=== PATIENT | female | born 1955 | race Caucasian/White ===

== ENCOUNTER → 2023-05-22 15:58 | Outpatient (REF) | payer OTHER, SELFPAY | LOC: HWRAD 15:58 | PROVIDERS: ATTENDING PHYSICIAN Internal Medicine Critical Care Medicine; FAMILY PHYSICIAN Family Medicine | DX: R06.02 Shortness of breath (principal); R09.89 Other specified symptoms and signs involving the circulatory and respiratory systems | CPT/HCPCS: 71250 ==

== ENCOUNTER → 2023-06-30 08:57 | Outpatient (REF) | payer OTHER, SELFPAY | LOC: RCS 08:57 | PROVIDERS: ATTENDING PHYSICIAN Internal Medicine Cardiovascular Disease; FAMILY PHYSICIAN Family Medicine | DX: I25.10 Atherosclerotic heart disease of native coronary artery without angina pectoris (principal); I45.10 Unspecified right bundle-branch block; R07.89 Other chest pain; I47.19 Other supraventricular tachycardia | CPT/HCPCS: 93017; 93350 ==

== ENCOUNTER → 2023-12-10 20:04 | Outpatient (REF) | payer OTHER, SELFPAY | LOC: MRI 20:04 | PROVIDERS: ATTENDING PHYSICIAN Family Medicine | DX: H81.4 Vertigo of central origin (principal); H90.2 Conductive hearing loss, unspecified | CPT/HCPCS: 70553; A9575 ==

== ENCOUNTER → 2024-01-08 15:05 | Outpatient (REF) | payer OTHER, SELFPAY | LOC: HWRAD 15:05 | PROVIDERS: ATTENDING PHYSICIAN Family Medicine | DX: C07 Malignant neoplasm of parotid gland (principal) | CPT/HCPCS: 76536 ==

== ENCOUNTER → 2024-02-11 09:24 | Outpatient (REF) | payer OTHER, SELFPAY ==
[2024-02-11 09:35] VITALS: BP 143/84; BP_SYST 86
[2024-02-11 10:30] VITALS: BP 143/84
== END ==
LOC: RADI 09:24
PROVIDERS: ATTENDING PHYSICIAN Otolaryngology; FAMILY PHYSICIAN Family Medicine
DX: D11.0 Benign neoplasm of parotid gland (principal)
CPT/HCPCS: 88173; 42400; 76942

== ENCOUNTER → 2024-03-22 14:42 | Outpatient (REF) | payer OTHER, SELFPAY | LOC: HWWDC 14:42 | PROVIDERS: ATTENDING PHYSICIAN Family Medicine | DX: Z12.31 Encounter for screening mammogram for malignant neoplasm of breast (principal) | CPT/HCPCS: 77063; 77067 ==

== ENCOUNTER 2024-10-12 19:38 | Emergency (ER) | payer OTHER, SELFPAY ==
[2024-10-12 19:42] VITALS: BP 173/105
[2024-10-12 21:00] VITALS: BP 153/83
--- NOTE | 2024-10-12 22:01 | ED.GENMED ---
History of Present Illness
General
Chief Complaint: Nose Bleed
Source: patient
Exam Limitations: none
Time Seen by Provider: 10/12/24 20:15
Nursing documentation reviewed up to this point in time: agreed with
History of Present Illness
History of Present Illness:
Patient to ED with nose bleed. States she has had a nose bleed daily for the past days, Unable to stop bleeding today. Brought to ED by spouse for eval
Past History
Past History
ED Past Medical History: Hypercholesterolemia, Psychiatric (Anxiety Depression) and Other (Diverticulitis, IBS, Glaucoma treated and gone, C-diff, Vertigo)
ED Past Surgical History: Orthopedic (ORIF of Toe)
Social History
Tobacco: Non-smoker
Alcohol: Occasional
Drug: None
Personal:
Living: with family
Family History
Family History: CAD
Review of Systems
Review of Systems
Allergies reviewed?: Yes
All Other Systems: ROS reviewed and negative except as documented in HPI and ROS
Constitutional: Reports no symptoms
EENT: Reports other (right sided nose bleed)
Respiratory: Reports no symptoms
Cardiac: Reports no symptoms
ABD/GI: Reports no symptoms
: Reports no symptoms
Musculoskeletal: Reports no symptoms
Skin: Reports no symptoms
Neurological: Reports no symptoms
Psychiatric: Reports no symptoms
Phy Exam
General Physical Exam
General Presentation: moderate distress
General Skin: warm and dry
General Habitus: normal
General Mental: alert
ENT Exam
ENT Exam: other (heavy right nose bleed. Passing large clots. Unable to stop bleeding with direct pressure. Posterior packing applied with resolution of bleeding. SHe will follow up with ENT tomorrow)
Musculoskeletal Exam
Musculoskeletal Exam: full ROM and neuro vasc intact
Skin Exam
Skin Exam: normal color, warm/dry and no rash
Psychiatric Exam
Psychiatric Exam: normal mood/affect
Course
Orders/Labs/Results
Orders:
Orders
10/12/24 20:17
Tranexamic Acid 1,000 mg .ROUTE .STK-MED ONE
Vital Signs
Initial and Last Documented VS:
Initial Vital Signs
Temp Pulse Resp BP
98.1 F 100 18 173/105
10/12/24 19:42 10/12/24 19:42 10/12/24 19:42 10/12/24 19:42
Last Documented Vital Signs
Temp Pulse Resp BP
98.1 F 100 18 153/83
10/12/24 19:42 10/12/24 19:42 10/12/24 21:00 10/12/24 21:00
*Pulse Oximetry
Oxygen Mode of Delivery: Room air
Patient hypoxic: no
*Critical Care Note
Total Time (30-74mins, 75-104mins- exclusive of procedures): Not Applicable
Update Note
Update Note:
Patient to ED with nose bleed. Has had bleeding daily for 3 days Today unable to stop bleeding. Heavy bleeding from right nare. Unable to stop bleeding with pressure. Posterior nasal packing applied iwth resolution of bleeding Will discharge
home and she will follow up with ENT tomorrow. Given instructions on s/s to return ot ED and she is agreeable to plan.
ED Attending Note
-
Portions of this chart may have been created with voice recognition software.� Occasional wrong word or��sound alike� substitutions may have occurred due to the inherent limitations of voice recognition software.
Discharge Plan
Departure
Patient Disposition: Home (Routine Discharge)
Date of Disposition: 10/12/24
Time of Disposition: 20:51
Patient with high blood pressure during this ER visit?: No
Condition: Good
Covid-19: Not Applicable
Discharge Problem:
Nosebleed
Instructions: Nosebleeds (DC)
Prescriptions:
No Action
sertraline 50 MG tablet
50 mg PO QPM
loratadine 10 MG tablet
10 mg PO DAILYPRN PRN (Reason: allergies)
rosuvastatin 5 MG tablet
5 mg PO QPM
Lactobac 2-Bifido 1-S. therm [High Potency Probiotic] 1 CAP capsule
1 cap PO DAILY
multivitamin with folic acid [Tab-A-Licha] 1 TABLET tablet
1 tab PO DAILY
Referrals:
Bertin Batista DO [Family Provider, Family Practice]
Vamsi Vaughn MD [Active, Otology] - Call in 1-3 days for appt
Activity Restrictions/Additional Instructions:
Return to the emergency department immediately for any changes in/worsening of your symptoms,
Interventions
Interventions:
*Risk Screen - Suicide Last Done: 10/12/24 19:42
*General Assessment Last Done: 10/12/24 19:42
*Neglect/Abuse Screening Last Done: 10/12/24 19:42
*ED COVID-19 Vaccine History Last Done: 10/12/24 19:42
*Nursing Disposition Last Done: 10/12/24 21:00
ED-EENT Assessment Last Done: 10/12/24 20:00
Discharge Date and Time
Discharge Date/Time: 10/12/24 21:00
Print Language: WELSH
== END 2024-10-12 21:00 | disposition home or self-care (01) ==
LOC: EMR 19:38
PROVIDERS: EMERGENCY PHYSICIAN Emergency Medicine; FAMILY PHYSICIAN Family Medicine
DX: R04.0 Epistaxis (principal); E78.00 Pure hypercholesterolemia, unspecified; F41.9 Anxiety disorder, unspecified; F32.A Depression, unspecified; K57.92 Diverticulitis of intestine, part unspecified, without perforation or abscess without bleeding; K58.9 Irritable bowel syndrome, unspecified; Z88.1 Allergy status to other antibiotic agents
CPT/HCPCS: 99283; 30901

== ENCOUNTER → 2024-12-06 07:58 | Outpatient (REF) | payer OTHER, SELFPAY | LOC: RAD 07:58 | PROVIDERS: ATTENDING PHYSICIAN Otolaryngology Facial Plastic Surgery; FAMILY PHYSICIAN Family Medicine | DX: D11.0 Benign neoplasm of parotid gland (principal); H81.12 Benign paroxysmal vertigo, left ear; H93.12 Tinnitus, left ear | CPT/HCPCS: 70492; Q9967 ==